=== PATIENT | female | born 1935 | race Caucasian/White ===

== ENCOUNTER 2018-07-04 13:09 | Emergency (ER) | payer MEDICARE ==
[2018-07-04] MEDS ORDERED: ACETAMINOPHEN TAB 500 MG TAB PO STA (13:44)
--- NOTE | 2018-07-04 13:51 | ED ---
Chest Pain HPI - General Chief Complaint: Chest Pain Stated Complaint: chest pain Time Seen by Provider: 07/04/18 13:23 Source: patient Mode of arrival: ambulatory Limitations: no limitations - History of Present Illness Initial Comments: This is a 82-year-old female history of GERD history of PE for which she has been on Xarelto for about one to one half months who presents today with complaints of midsternal chest pain somewhat sharp in nature 6/10 severity did get somewhat worse she is here for evaluation. She is taking Tums and other antacids without relief. She has a cough phlegm production fevers chills sweats she states she had a recent MRI done which showed degenerative disc disease and was cautioned about heavy lifting. The pain does not radiate she has no other constitutional symptoms no other modifying factors at this time. MD Complaint: chest pain - Related Data Home Medications Medication Instructions Recorded Confirmed Ascorbic Acid [Vitamin C] 1,000 mg PO DAILY 07/04/18 07/04/18 Cholecalciferol [Vitamin D3] 1,000 unit PO DAILY 07/04/18 07/04/18 Cranberry Fruit Extract [Cranberry] 500 mg PO DAILY 07/04/18 07/04/18 Denosumab [Prolia] 60 mg SQ Q180D 07/04/18 07/04/18 L.acidoph,Paracasei, B.lactis 1 cap PO DAILY 07/04/18 07/04/18 [Probiotic] Mirabegron [Myrbetriq] 25 mg PO DAILY 07/04/18 07/04/18 Rivaroxaban [Xarelto] 20 mg PO DAILY 07/04/18 07/04/18 Thyroid, Pork [[place] Thyroid] 90 mg PO DAILY 07/04/18 07/04/18 Zopiclone 7.5 mg PO HS 07/04/18 07/04/18 Allergies Allergy/AdvReac Type Severity Reaction Status Date / Time No Known Allergies Allergy Verified 07/04/18 13:46 Review of Systems ROS Statement: Those systems with pertinent positive or pertinent negative responses have been documented in the HPI. ROS Other: All systems not noted in ROS Statement are negative. EKG Findings - EKG Results: EKG: interpreted by ERMD, sinus rhythm (Sinus rhythm of 82. 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 Date of last positivie culture/infection: 2013 MDRO Source:: rectum, nasal Past Surgical History: Cholecystectomy, Hysterectomy, Tonsillectomy, Tubal Ligation Past Psychological History: No Psychological Hx Reported Smoking Status: Former smoker Past Alcohol Use History: Occasional Past Drug Use History: None Reported General Exam - General Exam Comments Initial Comments: This is a well-developed well-nourished awake alert oriented 3 female Limitations: no limitations General appearance: alert, in no apparent distress Head exam: Present: atraumatic, normocephalic, normal inspection Eye exam: Present: normal appearance, PERRL, EOMI. Absent: scleral icterus, conjunctival injection, periorbital swelling ENT exam: Present: normal exam, mucous membranes moist Neck exam: Present: normal inspection. Absent: tenderness, meningismus, lymphadenopathy Respiratory exam: Present: normal lung sounds bilaterally, chest wall tenderness (Reproducible tenderness palpation along the costal sternal margins bilaterally no step-off or crepitation). Absent: respiratory distress, wheezes , rales, rhonchi, stridor Cardiovascular Exam: Present: regular rate, normal rhythm, normal heart sounds. Absent: systolic murmur, diastolic murmur, rubs, gallop, clicks GI/Abdominal exam: Present: soft, normal bowel sounds. Absent: distended, tenderness, guarding, rebound, rigid Extremities exam: Present: normal inspection, full ROM, normal capillary refill. Absent: tenderness, pedal edema, joint swelling, calf tenderness Back exam: Present: full ROM, other (Kyphosis is demonstrated). Absent: tenderness, CVA tenderness (R), CVA tenderness (L), muscle spasm, paraspinal tenderness, vertebral tenderness Neurological exam: Present: alert, oriented X3, CN II-XII intact Psychiatric exam: Present: normal affect, normal mood Skin exam: Present: warm, dry, intact, normal color. Absent: rash Course Vital Signs 07/04/18 13:13 Temperature 98.3 F Pulse Rate 83 Respiratory 18 Rate Blood Pressure 111/63 O2 Sat by Pulse 98 Oximetry Chest Pain MDM - MDM Review the x-ray shows no acute findings. Patient did get relief from the pain after oral Tylenol. Patient will be discharged the presentation is consistent with costochondritis. Disposition Clinical Impression: Costalchondritis, Chest wall syndrome Disposition: HOME SELF-CARE Condition: Good Instructions: Costochondritis (ED) Additional Instructions: [id number] Tylenol for pain, warm compresses. Is patient prescribed a controlled substance at d/c from ED?: No Referrals: Nonstaff,Physician [Primary Care Provider] - 1-2 days
[2018-07-04 14:00] LABS: Basophils % (A) 0 %; Eosinophils # (A) 0.1 k/uL (0-0.7); Eosinophils % (A) 1 %; HCT 46.8 % (34.0-46.0); HGB 15.1 gm/dL (11.4-16.0); Lymphocytes # (A) 0.8 k/uL (1.0-4.8); Lymphocytes % (A) 8 %; MCH 30.5 pg (25.0-35.0); MCHC 32.3 g/dL (31.0-37.0); MCV 94.2 fL (80.0-100.0); Mean Platelet Volume 7.4; Monocytes # (A) 0.6 k/uL (0-1.0); Monocytes % (A) 6 %; Neutrophils # (A) 8.3 k/uL (1.3-7.7); Neutrophils % (A) 84 %; Platelet Count 168 k/uL (150-450); RBC 4.96 m/uL (3.80-5.40); RDW 12.7 % (11.5-15.5); WBC 9.9 k/uL (3.8-10.6)
[2018-07-04 14:04] LABS: ALT 26 U/L (9-52); AST 22 U/L (14-36); Albumin 3.9 g/dL (3.5-5.0); Alkaline Phosphatase 110 U/L (38-126); Amylase 71 U/L (30-110); Anion Gap 6 mmol/L; Blood Urea Nitrogen 12 mg/dL (7-17); Carbon Dioxide 27 mmol/L (22-30); Chloride 105 mmol/L (98-107); Glucose 89 mg/dL (74-99); Lipase 60 U/L (23-300); Magnesium 1.9 mg/dL (1.6-2.3); Potassium 4.2 mmol/L (3.5-5.1); Sodium 138 mmol/L (137-145); Total Bilirubin 0.9 mg/dL (0.2-1.3); Total Protein 6.6 g/dL (6.3-8.2)
[2018-07-04 14:06] LABS: INR 1.5 (<1.2); Partial Thromboplastin Time 36.1 sec (22.0-30.0); Prothrombin Time 14.1 sec (9.0-12.0)
--- NOTE | 2018-07-04 14:08 | XR ---
EXAMINATION TYPE: XR chest 2V DATE OF EXAM: 07/04/2018 COMPARISON: None HISTORY: 82-year-old female with chest pain TECHNIQUE: PA and lateral views FINDINGS: Heart upper limits of normal in size. Mild elongation aortic knob. Mild diffuse interstitial prominen ce. No consolidation or pleural effusion. High-density nodule at the left midlung suspect a calcified granuloma. Cholecystectomy clips. IMPRESSION: Chronic-appearing changes, possible underlying COPD. Calcified granuloma left midlung. No acute proce ss seen.
[2018-07-04 14:22] LABS: Creatine Kinase 20 U/L (30-135)
[2018-07-04 14:35] LABS: Creatine Kinase MB <0.2 ng/mL (0.0-2.4); Troponin I <0.012 ng/mL (0.000-0.034)
[2018-07-04 16:06] VITALS: BP 90/52; PULSE 78; RESP 17; TEMP 98.2
== END 2018-07-04 16:06 | disposition home or self-care (01) ==
LOC: EC 13:09
DX: M94.0 Chondrocostal junction syndrome [Tietze] (principal); M40.209 Unspecified kyphosis, site unspecified; R05 Cough; R50.9 Fever, unspecified; M51.9 Unspecified thoracic, thoracolumbar and lumbosacral intervertebral disc disorder; Z87.891 Personal history of nicotine dependence; Z79.01 Long term (current) use of anticoagulants; Z79.899 Other long term (current) drug therapy; Z86.14 Personal history of Methicillin resistant Staphylococcus aureus infection; Z90.89 Acquired absence of other organs
CPT/HCPCS: 36415; 71046; 80053; 82150; 82550; 82553; 83690; 83735; 84484; 85025; 85610; 85730; 93005; 99285